=== PATIENT | male | born 1985 | race Caucasian/White ===

== ENCOUNTER 2019-04-28 09:01 | Emergency (ER) | payer OTHER ==
[2019-04-28 09:08] VITALS: BP 145/91; PULSE 110; RESP 20; TEMP 98.7
--- NOTE | 2019-04-28 09:51 | ED ---
Skin/Abscess/FB HPI - General Chief complaint: Skin/Abscess/Foreign Body Stated complaint: Poss staph infection Time Seen by Provider: 04/28/19 09:39 Source: patient, RN notes reviewed Mode of arrival: ambulatory Limitations: no limitations - History of Present Illness Initial comments: 33-year-old male presents emergency Department chief complaint of abscess. Patient states he has one to his lower back, buttocks region. He states it was here for approximately one week but did open up recently. Patient states is draining and symptoms are improving. Patient states he developed one in his right groin region recently but states is very small this time. He reports no fevers or chills. He states is painful pain is improving at this time. Denies fever, chills, night sweats. - Related Data Home Medications Medication Instructions Recorded Confirmed No Known Home Medications 04/28/19 04/28/19 Allergies Allergy/AdvReac Type Severity Reaction Status Date / Time latex Allergy Rash/Hives Verified 04/28/19 09:27 Review of Systems ROS Statement: Those systems with pertinent positive or pertinent negative responses have been documented in the HPI. ROS Other: All systems not noted in ROS Statement are negative. Past Medical History Past Medical History: No Reported History History of Any Multi-Drug Resistant Organisms: MRSA MDRO Source:: Tailbone Past Surgical History: No Surgical Hx Reported Past Psychological History: No Psychological Hx Reported Smoking Status: Current every day smoker Past Alcohol Use History: None Reported Past Drug Use History: Marijuana General Exam Limitations: no limitations General appearance: alert, in no apparent distress Head exam: Present: atraumatic, normocephalic, normal inspection Respiratory exam: Present: normal lung sounds bilaterally. Absent: respiratory distress, wheezes, rales, rhonchi, stridor Cardiovascular Exam: Present: regular rate (Patient was not tachycardic exam), normal rhythm, normal heart sounds. Absent: systolic murmur, diastolic murmur, rubs, gallop, clicks GI/Abdominal exam: Present: soft, normal bowel sounds. Absent: distended, tenderness, guarding, rebound, rigid Skin exam: Present: warm, dry, intact, normal color, other (Just superior to buttocks cleft there is a small draining abscess, purulent drainage noted, minimal erythema mild tenderness right groin there is a 0.5 cm arm nonfluctuant abscess. No surrounding erythema). Absent: rash Course Vital Signs 04/28/19 09:06 Temperature 98.7 F Pulse Rate 110 H Respiratory 20 Rate Blood Pressure 145/91 O2 Sat by Pulse 100 Oximetry Medical Decision Making - Medical Decision Making 33-year-old male presented for abscesses or recurrent issues. Patient has open draining abscess at this time. Patient we placed on antibiotics. Patient provided on-call surgery for recurrent abscesses. Return parameters were discussed. Disposition Clinical Impression: Abscess of buttock Disposition: HOME SELF-CARE Condition: Stable Instructions (If sedation given, give patient instructions): Abscess (ED) Additional Instructions: Please return to the Emergency Department if symptoms worsen or any other concerns. Is patient prescribed a controlled substance at d/c from ED?: No Referrals: None,Stated [Primary Care Provider] - 1-2 days Lindsey Delong DO [Doctor of Osteopathic Medicine] - 1-2 days Time of Disposition: 09:49
== END 2019-04-28 10:24 | disposition home or self-care (01) ==
LOC: EC 09:01
DX: L02.31 Cutaneous abscess of buttock (principal); F17.200 Nicotine dependence, unspecified, uncomplicated; Z91.040 Latex allergy status; Z86.14 Personal history of Methicillin resistant Staphylococcus aureus infection
CPT/HCPCS: 87070; 87205; 99283

== ENCOUNTER 2020-01-23 22:29 | Observation (INO) | payer OTHER ==
[2020-01-23] MEDS: LIDOCAINE 1% INJ 10MG/ML (20 ML MDV) SQ ONE (23:50)
[2020-01-23] MEDS ORDERED: KETOROLAC 30 MG/ML 1 ML VIAL IVP STA (23:52)
[2020-01-23] MEDS ORDERED: SODIUM CHLORIDE 0.9% 1,000 ML IV ONE (23:57)
[2020-01-24 00:19] LABS: Basophils # (A) 0.1 k/uL (0-0.2); Basophils % (A) 0 %; Eosinophils # (A) 0.3 k/uL (0-0.7); Eosinophils % (A) 2 %; HCT 44.8 % (39.0-53.0); HGB 14.8 gm/dL (13.0-17.5); Lymphocytes # (A) 2.5 k/uL (1.0-4.8); Lymphocytes % (A) 17 %; MCH 30.8 pg (25.0-35.0); MCHC 33.1 g/dL (31.0-37.0); Monocytes % (A) 7 %; Neutrophils # (A) 10.8 k/uL (1.3-7.7); Neutrophils % (A) 72 %; Platelet Count 299 k/uL (150-450); RBC 4.82 m/uL (4.30-5.90); RDW 12.7 % (11.5-15.5)
[2020-01-24] MEDS ORDERED: AMPICILLIN-SULBACTAM 3 GM in SODIUM CHLORIDE 0.9% 100 ML IVPB STA (00:30)
[2020-01-24] MEDS ORDERED: VANCOMYCIN IVPB ONE (00:30)
[2020-01-24] MEDS ORDERED: SODIUM CHLORIDE 0.9% IVPB ONE (00:30)
[2020-01-24] MEDS ORDERED: VANCOMYCIN 1,500 MG in SODIUM CHLORIDE 0.9% 250 ML IVPB STA (00:31)
[2020-01-24 00:36] LABS: ALT 13 U/L (4-49); AST 18 U/L (17-59); African American GFR (CKD) >90 (>60 ml/min/1.73 sqM); Albumin 3.9 g/dL (3.5-5.0); Alkaline Phosphatase 68 U/L (38-126); Anion Gap 8 mmol/L; Blood Urea Nitrogen 12 mg/dL (9-20); Calcium 8.9 mg/dL (8.4-10.2); Carbon Dioxide 27 mmol/L (22-30); Chloride 103 mmol/L (98-107); Glucose 100 mg/dL (74-99); Non-African American GFR(CKD) >90 (>60 ml/min/1.73 sqM); Sodium 138 mmol/L (137-145); Total Bilirubin 0.4 mg/dL (0.2-1.3); Total Protein 6.9 g/dL (6.3-8.2)
[2020-01-24] MEDS ORDERED: VANCOMYCIN IV PER PHARMACY 1 EACH MISC MISCELLANE SCH (00:45)
--- NOTE | 2020-01-24 01:26 | CT ---
EXAMINATION TYPE: CT pelvis w con DATE OF EXAM: 01/24/2020 COMPARISON: None HISTORY: Abscess CT DLP: 1544.6 mGycm Automated exposure control for dose reduction was used. CONTRAST: Performed with IV Contrast, patient injected with 100 mL of Isovue 300. Images were obtained from the level of L3 vertebra to the subtrochanteric femurs with IV contrast. FINDINGS: The ureters show normal contrast opacification. Urinary bladder appears normal. There is no sign of r etroperitoneal adenopathy. Visualized bowel in the pelvis appears normal. There is no evidence of a b owel obstruction. There is no ascites. There is no free fluid. There is no inguinal hernia. There is no evidence of a pelvic mass. There is 6 x 1 cm area of increased density in the cutaneous left buttock at the gluteal cleft. There is poorly marginated 3.5 cm area of density and fat stranding in the subcutaneous tissues posterior to the anus consistent with perianal abscess and phlegmon. More superiorly in the subcutaneous fat is a second 2.5 cm area of increased density and fat stranding consistent with inflammatory process. Th ere is subcutaneous density posterior to the sacrum extending up to the S1 level. The presacral soft tissues appear normal. The rectosigmoid colon appears normal. IMPRESSION: Inflammatory changes at the gluteal cleft on the left side consistent with cellulitis and perianal ph legmon and abscess as described above.
--- NOTE | 2020-01-24 01:46 | ED ---
Skin/Abscess/FB HPI - General Chief complaint: Skin/Abscess/Foreign Body Stated complaint: Cyst on L Buttocks Time Seen by Provider: 01/23/20 23:24 Source: patient Mode of arrival: ambulatory Limitations: no limitations - History of Present Illness Initial comments: 34-year-old male patient presents to the emergency department today for evaluation of possible abscess to the buttocks. Patient states he has been having pain and swelling near his tailbone. States this started about 4 days ago. States that he did go camping and continuing over the weekend and the pain symptoms seemed to worsen. He denies any fever or chills. Denies any drainage from the area. He does admit to having an abscess before that was positive for MRSA. He does report mildly painful bowel movements. Denies any difficulty with urination. Denies any nausea or vomiting. Patient denies any recent rash, cough, shortness of breath, chest pain, abdominal pain, diarrhea, constipation, back pain, numbness, tingling, dizziness, weakness, hematuria, dysuria, urinary urgency, urinary frequency, headache, visual changes, or any other complaints. - Related Data Previous Rx's Medication Instructions Recorded Cephalexin [Keflex] 500 mg PO Q6HR #40 cap 04/28/19 Sulfamethox-Tmp 800-160Mg [Bactrim 1 each PO Q12HR #20 tab 04/28/19 Ds] Allergies Allergy/AdvReac Type Severity Reaction Status Date / Time latex Allergy Rash/Hives Verified 04/28/19 09:27 Review of Systems ROS Statement: Those systems with pertinent positive or pertinent negative responses have been documented in the HPI. ROS Other: All systems not noted in ROS Statement are negative. Past Medical History Past Medical History: No Reported History History of Any Multi-Drug Resistant Organisms: MRSA MDRO Source:: Tailbone Past Surgical History: No Surgical Hx Reported Past Psychological History: No Psychological Hx Reported Smoking Status: Current every day smoker Past Alcohol Use History: None Reported Past Drug Use History: Marijuana General Exam Limitations: no limitations General appearance: alert, in no apparent distress, other (This well-developed, well-nourished adult male patient in no acute distress. Vital signs upon presentation are temperature 99.3F, pulse 101, respirations 18, blood pressure 141/90, pulse ox 99% on room air.) ENT exam: Present: normal exam, normal oropharynx, mucous membranes moist Respiratory exam: Present: normal lung sounds bilaterally. Absent: respiratory distress, wheezes, rales, rhonchi, stridor Cardiovascular Exam: Present: regular rate, normal rhythm, normal heart sounds. Absent: systolic murmur, diastolic murmur, rubs, gallop, clicks GI/Abdominal exam: Present: soft, normal bowel sounds. Absent: distended, te nderness, guarding, rebound, rigid Rectal exam: Present: tenderness (Over the superior aspect), other (There is soft tissue swelling, redness, and induration over the left buttock near the gluteal cleft. This extends to the perianal region. ) Neurological exam: Present: alert, oriented X3, CN II-XII intact Psychiatric exam: Present: normal affect, normal mood Skin exam: Present: warm, dry, intact, normal color. Absent: rash Course Vital Signs 01/23/20 01/24/20 22:49 01:16 Temperature 99.3 F Pulse Rate 101 H 90 Respiratory 18 18 Rate Blood Pressure 141/90 126/73 O2 Sat by Pulse 99 98 Oximetry Medical Decision Making - Medical Decision Making 34-year-old male patient presents to the emergency department today for evaluation of pain, redness, swelling over the tailbone region. Symptoms started 4 days ago. Upon arrival temperatures 99.3F, eyes mildly tachycardic. Physical examination of the area did reveal redness, swelling, induration in the gluteal cleft on the left side extending down to the perianal region. I did perform a rectal exam and patient did have tenderness superiorly. No drainage was noted. Labs reviewed and did reveal elevated white blood cell count at 15. CT of the pelvis was obtained and showed evidence for. I'll abscess, cellulitis, and phlegmon. Patient will be admitted for IV antibiotics and further evaluation by surgery. - Lab Data Result diagrams: 01/24/20 00:07 01/24/20 00:07 Lab Results 01/24/20 01/24/20 01/24/20 Range/Units 00:07 00:07 00:07 WBC 15.0 H (3.8-10.6) k/uL RBC 4.82 (4.30-5.90) m/uL Hgb 14.8 (13.0-17.5) gm/dL Hct 44.8 (39.0-53.0) % MCV 93.0 (80.0-100.0) fL MCH 30.8 (25.0-35.0) pg MCHC 33.1 (31.0-37.0) g/dL RDW 12.7 (11.5-15.5) % Plt Count 299 (150-450) k/uL Neutrophils % 72 % Lymphocytes % 17 % Monocytes % 7 % Eosinophils % 2 % Basophils % 0 % Neutrophils # 10.8 H (1.3-7.7) k/uL Lymphocytes # 2.5 (1.0-4.8) k/uL Monocytes # 1.0 (0-1.0) k/uL Eosinophils # 0.3 (0-0.7) k/uL Basophils # 0.1 (0-0.2) k/uL Sodium 138 (137-145) mmol/L Potassium 4.0 (3.5-5.1) mmol/L Chloride 103 (98-107) mmol/L Carbon Dioxide 27 (22-30) mmol/L Anion Gap 8 mmol/L BUN 12 (9-20) mg/dL Creatinine 0.85 (0.66-1.25) mg/dL Est GFR (CKD-EPI)AfAm >90 (>60 ml/min/1.73 sqM) Est GFR (CKD-EPI)NonAf >90 (>60 ml/min/1.73 sqM) Glucose 100 H (74-99) mg/dL Plasma Lactic Acid Boaz 1.3 (0.7-2.0) mmol/L Calcium 8.9 (8.4-10.2) mg/dL Total Bilirubin 0.4 (0.2-1.3) mg/dL AST 18 (17-59) U/L ALT 13 (4-49) U/L Alkaline Phosphatase 68 (38-126) U/L Total Protein 6.9 (6.3-8.2) g/dL Albumin 3.9 (3.5-5.0) g/dL - Radiology Data Radiology results: report reviewed, image reviewed CT pelvis with contrast was obtained. Report is reviewed in its entirety. Impression by Dr. Osborn shows inflammatory changes at the gluteal cleft on the left side consistent with cellulitis and. All phlegmon and abscess as described above. Disposition Clinical Impression: Perianal abscess Disposition: ADMITTED IP TO THIS [facility] Condition: Serious Referrals: None,Stated [Primary Care Provider] - 1-2 days Decision to Admit Reason: Admit from EC Decision Date: 01/24/20 Decision Time: 02:15
[2020-01-24] MEDS ORDERED: ACETAMINOPHEN TAB 325 MG TAB PO PRN (02:14)
[2020-01-24] MEDS ORDERED: ONDANSETRON 4 MG/2 ML VIAL IVP PRN (02:14)
[2020-01-24] MEDS ORDERED: NALOXONE 0.4 MG/ML 1 ML VIAL IV PRN (02:14)
[2020-01-24] MEDS ORDERED: HYDROmorphone 1 MG/ML 1 ML SYRINGE IVP PRN (02:14)
[2020-01-24] MEDS: SODIUM CHLORIDE 0.9% 1,000 ML IV SCH (04:16)
[2020-01-24] MEDS: LIDOCAINE 1% INJ 10MG/ML (20 ML MDV) SQ ONE (04:50)
[2020-01-24] MEDS ORDERED: HYDROmorphone 1 MG/ML 1 ML SYRINGE IVP STA (08:41)
[2020-01-24] MEDS ORDERED: LIDOCAINE 1% INJ 10MG/ML (20 ML MDV) SQ ONE (08:45)
[2020-01-24] MEDS ORDERED: VANCOMYCIN 1,500 MG in SODIUM CHLORIDE 0.9% 250 ML IVPB SCH (09:00)
[2020-01-24] MEDS: VANCOMYCIN 1,500 MG in SODIUM CHLORIDE 0.9% 250 ML IVPB SCH ×2 (09:54→17:20)
--- NOTE | 2020-01-24 10:04 | P.GSHP ---
History of Present Illness H&P Date: 01/24/20 Chief Complaint: Perirectal abscess This a 35-year-old male with history of perirectal abscess. Patient presents today with a four-day history of perirectal pain. His CAT scan shows evidence of a perirectal abscess located on his left perirectal area Past Medical History Past Medical History: No Reported History History of Any Multi-Drug Resistant Organisms: MRSA Date of last positivie culture/infection: 2019 MDRO Source:: Tailbone Past Surgical History: No Surgical Hx Reported Past Psychological History: No Psychological Hx Reported Smoking Status: Current every day smoker Past Alcohol Use History: None Reported Past Drug Use History: Marijuana Medications and Allergies Home Medications Medication Instructions Recorded Confirmed Type No Known Home Medications 01/24/20 01/24/20 History Allergies Allergy/AdvReac Type Severity Reaction Status Date / Time latex Allergy Rash/Hives Verified 01/24/20 07:21 Surgical - Exam Vital Signs Temp Pulse Resp BP Pulse Ox 99.3 F 101 H 18 141/90 99 01/23/20 22:49 01/23/20 22:49 01/23/20 22:49 01/23/20 22:49 01/23/20 22:49 - General well developed, well nourished, no distress - Eyes PERRL - ENT normal pinna - Neck no masses - Respiratory normal expansion - Cardiovascular Rhythm: regular - Abdomen Abdomen: soft, non tender - Rectum Evidence of a perirectal abscess in the left perianal area Results - Labs 01/24/20 00:07 01/24/20 00:07 Abnormal Lab Results - Last 24 Hours (Table) 01/24/20 01/24/20 Range/Units 00:07 00:07 WBC 15.0 H (3.8-10.6) k/uL Neutrophils # 10.8 H (1.3-7.7) k/uL Glucose 100 H (74-99) mg/dL Diabetes panel 01/24/20 Range/Units 00:07 Sodium 138 (137-145) mmol/L Potassium 4.0 (3.5-5.1) mmol/L Chloride 103 (98-107) mmol/L Carbon Dioxide 27 (22-30) mmol/L BUN 12 (9-20) mg/dL Creatinine 0.85 (0.66-1.25) mg/dL Glucose 100 H (74-99) mg/dL Calcium 8.9 (8.4-10.2) mg/dL AST 18 (17-59) U/L ALT 13 (4-49) U/L Alkaline Phosphatase 68 (38-126) U/L Total Protein 6.9 (6.3-8.2) g/dL Albumin 3.9 (3.5-5.0) g/dL Calcium panel 01/24/20 Range/Units 00:07 Calcium 8.9 (8.4-10.2) mg/dL Albumin 3.9 (3.5-5.0) g/dL Pituitary panel 01/24/20 Range/Units 00:07 Sodium 138 (137-145) mmol/L Potassium 4.0 (3.5-5.1) mmol/L Chloride 103 (98-107) mmol/L Carbon Dioxide 27 (22-30) mmol/L BUN 12 (9-20) mg/dL Creatinine 0.85 (0.66-1.25) mg/dL Glucose 100 H (74-99) mg/dL Calcium 8.9 (8.4-10.2) mg/dL Adrenal panel 01/24/20 Range/Units 00:07 Sodium 138 (137-145) mmol/L Potassium 4.0 (3.5-5.1) mmol/L Chloride 103 (98-107) mmol/L Carbon Dioxide 27 (22-30) mmol/L BUN 12 (9-20) mg/dL Creatinine 0.85 (0.66-1.25) mg/dL Glucose 100 H (74-99) mg/dL Calcium 8.9 (8.4-10.2) mg/dL Total Bilirubin 0.4 (0.2-1.3) mg/dL AST 18 (17-59) U/L ALT 13 (4-49) U/L Alkaline Phosphatase 68 (38-126) U/L Total Protein 6.9 (6.3-8.2) g/dL Albumin 3.9 (3.5-5.0) g/dL Assessment and Plan Assessment: Labs. Patient undergo incision drainage. is at the bedside
--- NOTE | 2020-01-24 10:06 | P.OP ---
Date of Procedure: 01/24/20 Preoperative Diagnosis: Perirectal abscess Postoperative Diagnosis: Perirectal abscess Procedure(s) Performed: Incision and drainage of perirectal abscess Anesthesia: local Surgeon: Parveen Ortiz Estimated Blood Loss (ml): 5 Pathology: other (Wound culture) Condition: stable Disposition: PACU Description of Procedure: The patient's placed on the bed in the lateral position. His buttock was prepped in a sterile fashion. The areas anesthetized 1 to local Xylocaine. Using an 11 blade the abscess was incised. Approximately 10 mL of purulent fluid was removed from the abscess cavity. The wound was cultured. The wound was then packed. Patient tolerated the procedure well. Sterile dressing was applied.
[2020-01-24] MEDS ORDERED: KETOROLAC 30 MG/ML 1 ML VIAL IVP PRN (11:37)
--- NOTE | 2020-01-24 15:12 | P.HPIM ---
History of Present Illness 35-year-old pleasant male came in with complaints of pain in the perirectal area found to have perirectal abscess which was subsequently drained. Patient has severe sharp pain which started on started as a pimple pain has scarred and worse, patient denied any fever chills patient does have leukocytosis. Patient still has some induration in that area. Patient is presently on vancomycin which is being continued. Patient was given a dose of Unasyn as well in ER. Patient's pain is much better now after incision and drainage. Review of Systems REVIEW OF SYSTEMS: CONSTITUTIONAL: No fever, no malaise, no fatigue. HEENT: No recent visual problems or hearing problems. Denied any sore throat. CARDIOVASCULAR: No chest pain, orthopnea, PND, no palpitations, no syncope. PULMONARY: No shortness of breath, no cough, no hemoptysis. GASTROINTESTINAL: No diarrhea, no nausea, no vomiting, no abdominal pain. NEUROLOGICAL: No headaches, no weakness, no numbness. HEMATOLOGICAL: Denies any bleeding or petechiae. GENITOURINARY: Denies any burning micturition, frequency, or urgency. MUSCULOSKELETAL/RHEUMATOLOGICAL: Denies any joint pain, swelling, or any muscle pain. ENDOCRINE: Denies any polyuria or polydipsia. The rest of the 14-point review of systems is negative. Past Medical History Past Medical History: No Reported History History of Any Multi-Drug Resistant Organisms: MRSA Date of last positivie culture/infection: 2018 MDRO Source:: Tailbone Past Surgical History: No Surgical Hx Reported Past Psychological History: No Psychological Hx Reported Smoking Status: Current every day smoker Past Alcohol Use History: None Reported Past Drug Use History: Marijuana Medications and Allergies Home Medications Medication Instructions Recorded Confirmed Type No Known Home Medications 01/24/20 01/24/20 History Allergies Allergy/AdvReac Type Severity Reaction Status Date / Time latex Allergy Rash/Hives Verified 01/24/20 07:21 Physical Exam Vitals: Vital Signs Temp Pulse Pulse Resp BP BP Pulse Ox 01/24/20 13:00 97.8 F 70 14 116/93 99 01/24/20 02:36 98 F 70 18 134/76 96 01/24/20 01:16 90 18 126/73 98 01/23/20 22:49 99.3 F 101 H 18 141/90 99 Intake and Output 01/24/20 01/24/20 01/24/20 06:59 14:59 22:59 Other: Voiding Method Toilet Weight 95.254 kg PHYSICAL EXAMINATION: GENERAL: The patient is alert and oriented x3, not in any acute distress. Well developed, well nourished. HEENT: Pupils are round and equally reacting to light. EOMI. No scleral icterus. No conjunctival pallor. Normocephalic, atraumatic. No pharyngeal erythema. No thyromegaly. CARDIOVASCULAR: S1 and S2 present. No murmurs, rubs, or gallops. PULMONARY: Chest is clear to auscultation, no wheezing or crackles. ABDOMEN: Soft, nontender, nondistended, normoactive bowel sounds. No palpable organomegaly. There is significant induration and redness in the perianal area mostly the left buttock status post I&D MUSCULOSKELETAL: No joint swelling or deformity. EXTREMITIES: No cyanosis, clubbing, or pedal edema. NEUROLOGICAL: Gross neurological examination did not reveal any focal deficits. SKIN: As mentioned above Results CBC & Chem 7: 01/24/20 00:07 01/24/20 00:07 Labs: Abnormal Lab Results - Last 24 Hours (Table) 01/24/20 01/24/20 Range/Units 00:07 00:07 WBC 15.0 H (3.8-10.6) k/uL Neutrophils # 10.8 H (1.3-7.7) k/uL Glucose 100 H (74-99) mg/dL Thrombosis Risk Factor Assmnt - Choose All That Apply Any of the Below Risk Factors Present?: Yes Each Factor Represents 1 point: Obesity (BMI >25) Thrombosis Risk Factor Assessment Total Risk Factor Score: 1 Thrombosis Risk Factor Assessment Level: Low Risk Assessment and Plan Plan: -Perirectal abscess status post incision and drainage continue vancomycin awaiting wound cultures, patient had history of MRSA in the past, patient will be started on Toradol for pain which will help with inflammation and can avoid narcotics -Nicotine abuse and marijuana use: Counseling was provided. -Leukocytosis: Secondary to assessment #1
--- NOTE | 2020-01-24 20:47 | CONS ---
CONSULTATION DATE OF SERVICE: 01/24/2020 REASON FOR CONSULTATION: Perirectal abscess. HISTORY OF PRESENT ILLNESS: The patient is a 34-year-old male with a past medical history significant for MRSA skin and soft tissue infection. Patient presented to the ER at [facility] early this morning with the chief complaint of a painful sore to the gluteal area. The patient did mention he went camping on the weekend and developed a painful lump to the gluteal cleft and left gluteal area that has gradually increased in size. The patient describes the pain to be throbbing, especially when he bears weight on it, and an intensity of almost 7 to 8 out of 10, and no radiation. The patient has been complaining of fever with some chills. With these symptoms, the patient presented to hospital. On arrival in the ER, the patient did have a low-grade fever of 99.3. He did have white count of 15,000. The patient did have a CT of the pelvis which shows inflammatory changes at the gluteal cleft on the left consistent with cellulitis and perianal phlegmon. The patient has been evaluated by General Surgery and the patient did have bedside drainage of the left gluteal abscess. Culture was obtained. The patient has been started on vancomycin. Infectious Disease was consulted for further management of antibiotic therapy. He received one dose of Unasyn as well. REVIEW OF SYSTEMS: Positive points have been mentioned in the HPI. Rest of the systems are negative. PAST MEDICAL HISTORY: Past medical history is significant for MRSA skin and soft tissue infection. PAST SURGICAL HISTORY: No major surgery. SOCIAL HISTORY: Patient currently admits to smoking. No drinking. Does admit to marijuana use. FAMILY HISTORY: No pertinent findings noticed. ALLERGIES: LATEX. CURRENT MEDICATIONS: The patient is on vancomycin, Pharmacy to dose, Zofran, Narcan, Toradol, Dilaudid, Pepcid, Tylenol. PHYSICAL EXAMINATION: Blood pressure is 116/93 with a pulse of 70, temperature 97.8. He is 99% on room air. General description is a middle-aged male lying in bed in no distress. No tachypnea or accessory muscle of respiration use. HEENT: Examination shows no pallor or scleral icterus. Oral mucosa membrane is dry. No pharyngeal erythema or thrush. NECK: Trachea is central. No thyromegaly. LUNGS: Unlabored breathing. Clear to auscultation anteriorly. No wheeze or crackle. HEART: S1, S2. Regular rate and rhythm. ABDOMEN: Soft. No tenderness. No guarding or rigidity. The left gluteal area wound is currently packed. Minimal induration. No significant redness or foul-smelling drainage. LABS: Hemoglobin is 14.8, white count 15,000, creatinine 0.85. Cultures currently pending. DIAGNOSTIC IMPRESSION AND PLAN: Patient with left gluteal abscess, status post surgical drainage in this patient who did have a history of MRSA in the past; more likely representing an MRSA abscess, but no evidence of any rectal involvement per surgical report. PLAN: 1. Vancomycin, Pharmacy to dose, target of 15, while watching his vancomycin trough closely. 2. Will follow on clinical condition and culture and adjust antibiotic further if needed. Discharge antibiotic will depend upon the culture and clinical response. MMODL / IJN: [id number] /
[2020-01-24] MEDS ORDERED: FAMOTIDINE 20 MG TAB PO SCH (21:00)
[2020-01-24 22:05] VITALS: RESP 16
[2020-01-25] MEDS: VANCOMYCIN 1,500 MG in SODIUM CHLORIDE 0.9% 250 ML IVPB SCH (01:00)
[2020-01-25] MEDS: SODIUM CHLORIDE 0.9% 1,000 ML IV SCH ×2 (01:01→07:02)
[2020-01-25 04:56] VITALS: BP 121/72; PULSE 60; TEMP 97.9
[2020-01-25] MEDS ORDERED: VANCOMYCIN TROUGH DUE 1 EACH MISC MISCELLANE ONE (08:00)
--- NOTE | 2020-01-25 09:25 | P.DS ---
Providers Date of admission: 01/24/20 02:10 Expected date of discharge: 01/25/20 Attending physician: Parveen Ortiz Consults: 01/24/20 10:02 Consult Physician Routine Consulting Provider: Cj Frazier Consult Reason/Comments: perirectal abscess Do you want consulting provider notified?: Yes 01/24/20 10:03 Consult Physician Routine Consulting Provider: Maria Alejandra Valverde Consult Reason/Comments: Medical management Do you want consulting provider notified?: Yes Primary care physician: Stated None Hospital Course: This is a 34-year-old male who underwent incision and drainage of perirectal abscess. Patient did well please see hospital chart for details. Patient Condition at Discharge: Serious Plan - Discharge Summary New Discharge Prescriptions: New Levofloxacin [Levaquin] 500 mg PO DAILY 7 Days #7 tab Docusate [Colace] 100 mg PO BID #20 capsule HYDROcodone/APAP 5-325MG [[place] 5-325] 1 tab PO Q6HR PRN #10 tab PRN Reason: Pain Discharge Medication List Docusate [Colace] 100 mg PO BID #20 capsule 01/25/20 [Rx] HYDROcodone/APAP 5-325MG [[place] 5-325] 1 tab PO Q6HR PRN #10 tab 01/25/20 [Rx] Levofloxacin [Levaquin] 500 mg PO DAILY 7 Days #7 tab 01/25/20 [Rx] Follow up Appointment(s)/Referral(s): None,Stated [Primary Care Provider] - 1-2 days Parveen Ortiz MD [STAFF PHYSICIAN] - 1 Week Activity/Diet/Wound Care/Special Instructions: Patient to shower daily and wash wound with soap and water Discharge Disposition: HOME SELF-CARE
--- NOTE | 2020-01-29 04:18 | CDI ---
Documentation Clarification Form Date: 01/29/2020 From: Yobany Ho Phone: If you have a question about this query, please contact Carmen Samuel, [employer] at [phone] between 8am and 5pm. Admit Date: 01/24/2020 Discharge Date: 01/25/2020 Patient Name: Johnson Steinberg Visit Number: [id number] ATTENTION: The Clinical Documentation Specialists (CDI) and [facility] Coding Staff appreciate your assistance in clarifying documentation. Please respond to the clarification below the line at the bottom and electronically sign. The CDI & [facility] Coding staff will review the response and follow-up if needed. Please note: Queries are made part of the Legal Health Record. If you have any questions, please contact the author of this message via ITS. Dear Dr Angel Saini., Documentation in the Operative Report included: The areas anesthetized 1 to local Xylocaine.Using an 11 blade the abscess was incised.Approximately 10 mL of purulent fluid was removed from the abscess cavity. History/Risk factors: MRSA, Allergic to latex. Pre-Operative Diagnosis: left gluteal abscess Postoperative Diagnosis: left gluteal abscess Treatment: Incision and drainage of perirectal abscess. Per consult note " more likely representing an MRSA abscess, but no evidence of any rectal involvement per surgical report". In order to capture the severity of condition, please specify the following: Incision and Drainage of Rectum Incision and Drainage of Gluteal abscess(buttock) - Subcutaneous tissue and Fascia Incision and Drainage of Gluteal abscess(buttock) - Muscle Other, Please Specify Incision drainage of gluteal abscess subcutaneous tissue MTDD
== END 2020-01-25 10:59 | disposition home or self-care (01) ==
LOC: EC 22:29 → 4SSUR 01-24 02:10 → INTOOBSV 01-24 02:10 → 5NMEDONC 01-24 18:05 → UNDODISIN 01-25 10:59
PROVIDERS: ADMIT Surgery; ATTEND Surgery
PROC: 0J990ZZ Drainage of Buttock Subcutaneous Tissue and Fascia, Open Approach (ICD-10-PCS; principal; 2020-01-24)
DX: L02.31 Cutaneous abscess of buttock (principal); F17.210 Nicotine dependence, cigarettes, uncomplicated; F12.90 Cannabis use, unspecified, uncomplicated; E66.9 Obesity, unspecified; Z68.26 Body mass index [BMI] 26.0-26.9, adult; Z03.818 Encounter for observation for suspected exposure to other biological agents ruled out; Z91.040 Latex allergy status
CPT/HCPCS: 99285 ×2; 46040 ×2; 96365; 96366; 96367; 96375; 36415; 80053; 83605; 85025; 80202; 87040; 87070; 87205; 87077; 87186; 72193; G0378 ×3; U0003; J3370 ×2; J2001; J1885; J1170; J0295; Q9967; 96376